=== PATIENT | male | born 1945 | race Caucasian/White ===

== ENCOUNTER → 2016-10-06 | Outpatient (CLI) | payer OTHER, BC ==
--- NOTE | 2016-10-06 08:46 | DIAGNOSTIC IMAGING REPORT ---
ULTRASOUND OF THE ABDOMINAL AORTA CLINICAL HISTORY: Smoking history. Aneurysm screening. COMPARISON STUDY: No priors. TECHNIQUE: Multiple salmeron scale, color Doppler, and spectral Doppler sonograms of the abdominal aorta and iliac arteries are performed. Images are reviewed in the transverse and longitudinal planes. FINDINGS: There is moderate atherosclerotic calcification and irregularity noted throughout the abdominal aorta. The proximal abdominal aorta measures 1.8 x 1.7 cm (AP times transverse), the mid abdominal aorta measures 1.8 x 1.7 cm, and the distal abdominal aorta measures 1.7 x 1.7 cm. The right common iliac artery measures up to 1.1 cm and the left common iliac artery measures up to 1.0 cm. Normal flow and spectral Doppler waveforms are seen within the abdominal aorta. Velocities measure up to 120 cm/s. IMPRESSION: There is no sonographic evidence of abdominal aortic aneurysm. Electronically signed by: Dez Abrams M.D. 10/06/2016 8:45 AM Dictated Date/Time: 10/06/2016 8:43 AM
== END | disposition home or self-care (01) ==
LOC: C.ULTR 07:56
PROVIDERS: ATTEND Nurse Practitioner Family
DX: Z13.6 Encounter for screening for cardiovascular disorders (principal); Z87.891 Personal history of nicotine dependence